=== PATIENT | female | born 1940 | race Caucasian/White ===

== ENCOUNTER 2018-07-16 06:14 | Day surgery (SDC) | payer OTHER, MEDICARE ==
[2018-07-15 16:35] VITALS: BMI 20.6
[2018-07-16] MEDS ORDERED: OXYMETAZOLINE 0.05% NASAL SOLUTION 15 ML BOTTLE NS ONE ×2 (07:23→08:33)
[2018-07-16] MEDS ORDERED: TETRACAINE 0.5% OPHTH SOLN 2 ML BOTTLE ONE (07:23)
[2018-07-16] MEDS ORDERED: ERYTHROMYCIN 0.5% OPHTHALMIC OINTMENT 3.5 GM TUBE ONE (07:23)
[2018-07-16] MEDS ORDERED: THROMBIN (RECOMBINANT) 5,000 UNIT VIAL TP ONE (07:23)
[2018-07-16] MEDS ORDERED: POVIDONE-IODINE 5% OPHTHALMIC PREP 30 ML SOLUTION ONE (07:23)
[2018-07-16] MEDS ORDERED: GELATIN, ABSORBABLE 100 EACH SPONGE TP ONE ×2 (07:24→08:35)
[2018-07-16] MEDS ORDERED: LIDOCAINE 1%/EPI 1:100000 (20 ML MULTI DOSE VIAL) ONE ×2 (07:24→08:05)
[2018-07-16] MEDS ORDERED: BUPIVACAINE HCL/PF 0.5% (5MG/ML) 10 ML VIAL ONE (07:24)
[2018-07-16] MEDS ORDERED: MIDAZOLAM HCL 2 MG/2 ML SINGLE DOSE VIAL ONE (07:43)
[2018-07-16] MEDS ORDERED: SUCCINYLCHOLINE CHLORIDE 200 MG/10 ML VIAL ONE (07:43)
[2018-07-16] MEDS ORDERED: PROPOFOL 20 ML ONE ×3 (07:43→09:22)
[2018-07-16] MEDS ORDERED: ONDANSETRON 4 MG/2 ML VIAL ONE (08:04)
[2018-07-16] MEDS ORDERED: LIDOCAINE HCL/PF 2% SDV 5ML VIAL ONE (08:04)
[2018-07-16] MEDS ORDERED: DEXAMETHASONE SOD PHOSPHATE 4 MG/1 ML VIAL ONE (08:04)
[2018-07-16] MEDS ORDERED: ceFAZolin SODIUM 1 GM VIAL ONE (08:11)
[2018-07-16] MEDS ORDERED: TETRACAINE 0.5% HCL 0.6ML DROPPER.BOTTLE OP ONE (08:20)
[2018-07-16] MEDS ORDERED: ERYTHROMYCIN 0.5% OPHTHALMIC OINTMENT 3.5 GM TUBE OS ONE (08:34)
[2018-07-16] MEDS ORDERED: THROMBIN (BOVINE) 5,000 UNIT VIAL TP ONE (08:35)
[2018-07-16] MEDS ORDERED: oxyCODONE HCL 5 MG TABLET PO PRN (09:45)
[2018-07-16] MEDS ORDERED: LACTATED RINGERS SOLUTION 1,000 ML IV SCH (09:45)
[2018-07-16] MEDS ORDERED: ONDANSETRON 4 MG/2 ML VIAL IVPUSH PRN (09:45)
--- NOTE | 2018-07-16 10:52 | OP ---
DATE OF OPERATION: 07/16/2018 PREOPERATIVE DIAGNOSIS: Nasolacrimal obstruction with epiphora right. POSTOPERATIVE DIAGNOSIS: Nasolacrimal obstruction with epiphora right. PROCEDURE: 1. External dacryocystorhinostomy. 2. Silicone intubation, right lachrymal cyst. 3. Lacrimal sac biopsy. 4. Partial middle turbinectomy. 5. Endoscopy. SURGEON: Gianfranco Miles MD ANESTHESIA: LMA. COMPLICATONS: None. ESTIMATED BLOOD LOSS: 5-10 mL. OPERATION REPORT: Patient was brought to the operating room, placed on the operating room table. Vital signs monitored by Anesthesia. Tetracaine was placed in both eyes. The patient was placed under LMA anesthesia. A time-out was performed, confirming the right side. A tear trough incision was marked in the right tear trough, and a 50/50 mixture of 2% Xylocaine with 1:100,000 epinephrine and 0.5% Marcaine was injected subcutaneously in the right tear trough and nasal third of the upper and lower lid, lateral wall of the nose, anterior lacrimal crest, and dorsal nasal artery. A total of 3-4 mL was appropriately administered in this area, and then, under direct visualization, the middle turbinate, middle meatus, external naris was injected with 2% Xylocaine with 1:100,000 epinephrine, and the right nostril was packed with Cottonoids moistened with Afrin. Following this, patient was prepped and draped in the usual sterile fashion exposing both eyes and the nose. The left eye was taped closed with Steri-Strips. An incision was then in the tear trough, and this was carried down through skin and subcutaneous tissues. Blunt spreading with Temple scissors was then used to dissect the tissues and spread them apart until the anterior lacrimal crest was obtained. Following this, the anterior lacrimal crest was incised with a Codington needle from the medial canthal tendon inferolaterally, and then, the periosteum was reflected laterally with a peritoneal elevator closing the entire lacrimal sac fossa. Curved hemostat was used to penetrate the lacrimal bone, and then, upbiting Kerrison rongeurs were used to create an osteotomy centered on the anterior lacrimal crest extending from the medial canthal tendon to the nasolacrimal duct. Following this, the upper and lower puncta were dilated and intubated, and then, probe was passed through the upper and lower punctate tenting the medial wall of the sac medially, and the sac was incised on its medial surface with a 12 blade, and then relaxing incisions were created with Waldemar scissors creating anterior and posterior lacrimal sac flaps. The posterior lacrimal sac flap was biopsied and sent for pathology, and then, any fibrous adhesions around the internal common canaliculus were dissected free. A partial middle turbinectomy was performed at this point as the turbinate prevented postoperative revealing of the internal ostium. Hemostasis was achieved with a Codington needle, and packing with Cottonoids moistened with Thrombin and Afrin in the nose. System was then intubated with [employer] intubation probes, which were treated with suction catheter through the right external naris. The stents were removed from the probes, the probes were tied with locking knots, and secured to the right external naris with a single 6-0 Prolene suture with minimal tension on the loop and right medial canthus. The anterior lacrimal sac flap was secured to the periosteum anterior to the osteotomy with interrupted and matressed 4-0 chromic suture, the subcuticular tissue was closed with 5-0 chromic suture, and the skin was closed with running 6-0 plain suture. Erythromycin ointment was placed on the suture line. Afrin had previously been sprayed in the nose. The nose was then examined with an endoscope, and partial middle turbinectomy was examined. The turbinates seemed to be free from impinging on the ostium with good view of the internal ostium endoscopically and with minimal bleeding, and the patient was taken to the recovery room after being awakened from anesthesia in stable condition. Clementina BROWN/[id number]
[2018-07-16 12:21] VITALS: BP 121/52; PULSE 69; TEMP 98
--- NOTE | 2018-07-17 18:11 | PATH ---
Surgical Pathology Report Patient Name: MARELY GUTIERREZ [facility]. Rec. #: [id number] /Age/Gender: 1940 (Age: 78) / F Account: [id number] Location: [facility] AMBULATORY Taken: 07/16/2018 Received: 07/16/2018 Reported: 07/17/2018 Physicians: Gianfranco Miles Specimen(s) Received RIGHT LACRIMAL SAC Clinical History Blocked tear duct right eye Final Diagnosis RIGHT LACRIMAL SAC, BIOPSY: FIBROCONNECTIVE TISSUE WITH VASCULARIZATION AND RECENT HEMORRHAGE. Electronically Signed Narendra Orona M.D. Gross Description Received in formalin, labeled "right lacrimal sac" is a lopez, irregular portion of soft tissue measuring 0.5 cm. in greatest dimension. The specimen is submitted in toto in one cassette. /07/16/201807/16/2018
== END 2018-07-16 12:21 | disposition home or self-care (01) ==
LOC: FASU 06:14 → EDSEX 07:30 → FASU 12:21
PROVIDERS: ATTEND Ophthalmology
PROC: 09JK8ZZ Inspection of Nasal Mucosa and Soft Tissue, Via Natural or Artificial Opening Endoscopic (ICD-10-PCS; 2018-07-16)
PROC: 081X0Z3 Bypass Right Lacrimal Duct to Nasal Cavity, Open Approach (ICD-10-PCS; principal; 2018-07-16 08:26)
DX: H04.551 Acquired stenosis of right nasolacrimal duct (principal); H04.201 Unspecified epiphora, right side
CPT/HCPCS: 88304-TC; 94760